=== PATIENT | male | born 1965 | race African-American/Black ===

== ENCOUNTER 2019-01-25 22:30 | Emergency (ER) | payer SELFPAY ==
[~2019-01-25] VITALS: Ht 172.7 cm; Wt 84.8 kg
--- NOTE | 2019-01-25 23:41 | RAD ---
Two-view right forearm dated 01/25/2019. No comparison available. Clinical data indication: Forearm laceration. FINDINGS: 2 views right forearm show soft tissue laceration dorsally at the midshaft radius. Underlying osseous structures intact. No displaced fracture. No periostitis or bone destruction. No radiopaque foreign body. IMPRESSION: Soft tissue laceration with no evidence of underlying acute bony abnormality or radiopaque foreign body. Electronically signed by: Kumar Aly MD (01/25/2019 11:39 PM) [facility] [place]
[2019-01-25] MEDS ORDERED: LIDOCAINE/EPI/TETRACAINE TOPICAL GEL 3 ML. TP ONE (23:45)
[2019-01-25] MEDS ORDERED: LIDOCAINE 1%/EPI 1:100,000 20 ML VIAL. INJ ONE (23:45)
[2019-01-26] MEDS ORDERED: DIPHTH,PERTUSS(ACELL),TET TOX 0.5 ML DISP.SYRIN. VAX IM ONE
[2019-01-26 00:02] LABS: BASO # 0.1 x10^3/uL (0.0-0.2); BASO % 1 % (0-3); EOS # 0.1 x10^3/uL (0.0-0.7); EOS % 1 % (0-3); HEMATOCRIT 44.4 % (39.0-53.0); HEMOGLOBIN 14.8 g/dL (13.0-17.5); LYMPH # 0.8 x10^3/uL (1.0-4.8); LYMPH % 7 % (24-48); MEAN CORPUSCULAR HEMOGLOBIN 30 pg (25-35); MEAN CORPUSCULAR HGB CONC 34 g/dL (31-37); MEAN CORPUSCULAR VOLUME 90 fL (79-100); MONO # 0.8 x10^3/uL (0.0-1.1); MONO % 7 % (0-9); NEUT # 9.7 x10^3/uL (1.8-7.7); NEUT % 84 % (31-73); PLATELET COUNT 211 x10^3/uL (140-400); RED BLOOD COUNT 4.95 x10^6/uL (4.30-5.70); RED CELL DISTRIBUTION WIDTH 15.3 % (11.5-14.5); WHITE BLOOD COUNT 11.5 x10^3/uL (4.0-11.0)
[2019-01-26 00:08] LABS: CALCIUM 9.2 mg/dL (8.5-10.1); CREATININE 1.6 mg/dL (0.7-1.3); GFR 54.8; POTASSIUM 3.9 mmol/L (3.5-5.1)
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
[2019-01-26 00:14] LABS: TOTAL BILIRUBIN 0.9 mg/dL (0.2-1.0)
[2019-01-26 00:45] VITALS: BP 160/97
== END 2019-01-26 02:00 | disposition home or self-care (01) ==
LOC: EEVIPCON 22:30 → ER 22:30 → UNDOADMOB 01-26 03:50 → 4 NORTH 01-26 03:50
DX: S51.811A Laceration without foreign body of right forearm, initial encounter (principal); I10 Essential (primary) hypertension; Y04.8XXA Assault by other bodily force, initial encounter; Y93.89 Activity, other specified; Y92.89 Other specified places as the place of occurrence of the external cause; Y99.8 Other external cause status
CPT/HCPCS: 12004; 36415; 73090; 80053; 85025; 90471; 90715; 99285; J3490; 86703; 86705; 86706; 86709; 86803; 87340